=== PATIENT | male | born 1945 | race Caucasian/White ===

== ENCOUNTER 2018-09-07 08:42 | Outpatient (CLI) | payer OTHER | END 2018-09-07 08:52 | disposition home or self-care (01) | LOC: TOM 08:42 | DX: K40.91 Unilateral inguinal hernia, without obstruction or gangrene, recurrent (principal); R05 Cough ==

== ENCOUNTER 2018-12-05 05:00 | Day surgery (SDC) | payer OTHER ==
[2018-12-05] MEDS ORDERED: ULTRACET PO (10:07)
[2018-12-05] MEDS ORDERED: NEURONTIN300 MG PO (10:08)
[2018-12-05] MEDS ORDERED: COLACE100 MG PO (10:10)
== END 2018-12-05 11:35 | disposition home or self-care (01) ==
LOC: CIR.AMB 05:00
DX: K40.91 Unilateral inguinal hernia, without obstruction or gangrene, recurrent (principal)

== ENCOUNTER 2021-02-09 09:56 | Outpatient (CLI) | payer OTHER ==
[~2021-02-09 09:56] MED LIST: COLACE100 MG PO; NEURONTIN300 MG PO; ULTRACET PO
== END 2021-02-09 10:07 | disposition home or self-care (01) ==
LOC: SONOGRAMA 09:56
PROVIDERS: ATTEND Internal Medicine
DX: R97.20 Elevated prostate specific antigen [PSA] (principal); N20.0 Calculus of kidney; I10 Essential (primary) hypertension; K40.91 Unilateral inguinal hernia, without obstruction or gangrene, recurrent; D64.89 Other specified anemias; F10.10 Alcohol abuse, uncomplicated; Z68.25 Body mass index [BMI] 25.0-25.9, adult; I73.89 Other specified peripheral vascular diseases